=== PATIENT | female | born 1980 | race Two or more races ===

== ENCOUNTER 2024-07-11 22:48 | Emergency (ER) | payer BC, SELFPAY ==
--- NOTE | 2024-07-11 22:51 | EKG_ITS ---
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
[2024-07-11 22:54] VITALS: BP 145/90; PULSE 130; RESP 22; TEMP 36.6; O2SAT 100; BMI 32.4
--- NOTE | 2024-07-11 23:03 | XR_ITS ---
Examination: PA chest single view Technique: Upright PA chest single view Indications: Shortness of breath chest pain today Findings: Mild increased markings left base retrocardiac with poor definition left hemidiaphragm Right lung clear Normal heart size Osseous structures intact Impression: Suspicious for early left base pneumonia
[2024-07-11 23:49] LABS: Basophils # (Auto) 0.1 Thou/mm3 (0.0-0.2); Basophils % (Auto) 1 % (0-2.5); Eosinophils # (Auto) 0.1 Thou/mm3 (0.0-0.5); Eosinophils % (Auto) 1 % (0-10); Hematocrit 40.4 % (36.0-46.0); Hemoglobin 13.3 g/dL (12.0-16.0); Immature Granulocytes % (Auto) 0 % (0-0); Immature Granulocytes Auto 0.08 Thou/mm3 (0.00-0.00); Lymphocytes # (Auto) 3.4 Thou/mm3 (1.0-4.8); Lymphocytes % (Auto) 18 % (10-50); Mean Corpuscular HGB Conc 32.9 g/dl (31.0-37.0); Mean Corpuscular Hemoglobin 27.8 pg (25.0-35.0); Mean Corpuscular Volume 84 fL (80-100); Monocytes # (Auto) 1.1 Thou/mm3 (0.0-0.8); Monocytes % (Auto) 6 % (0-12); Neutrophils # (Auto) 13.9 Thou/mm3 (1.8-7.7); Neutrophils % (Auto) 75 % (37-80); Nucleated Red Blood Cell % 0 /100 WBC (0); Platelet Count 362 Thou/mm3 (140-440); RDW Standard Deviation 38.9 fL (36.4-46.3); Red Blood Count 4.79 Miln/mm3 (4.00-5.20); White Blood Count 18.6 Thou/mm3 (3.6-11.0)
[2024-07-12 00:02] LABS: Alanine Aminotransferase 19 U/L (10-49); Albumin, Serum 4.6 gm/dL (3.5-5.0); Albumin/Globulin Ratio 1.6 (1.2-2.2); Alkaline Phosphatase 60 U/L (46-116); Anion Gap 7 (7-16); Aspartate Amino Transferase 22 U/L (0-34); BUN/Creatinine Ratio 15 Ratio (12-20); Bilirubin,Total 0.8 mg/dL (0.3-1.2); Blood Urea Nitrogen 12 mg/dL (9-23); Calcium 9.6 mg/dL (8.3-10.6); Calcium (Corrected) 9.6 mg/dL (8.5-10.1); Carbon Dioxide 26.7 mMol/L (20.0-31.0); Chloride 107 mMol/L (98-107); Creatinine (Component) 0.8 mg/dL (0.6-1.3); Estimated Creatinine Clearance 89.7 mL/min (>60); Globulin 2.8 gm/dL (2.3-3.5); Glucose 146 mg/dL (74-106); Osmolality,Calculated 283 (275-295); Potassium 3.2 mMol/L (3.4-5.1); Sodium 141 mMol/L (136-145); Total Protein 7.4 gm/dL (5.7-8.2); Troponin I < 0.020 ng/mL (0.0-0.045); eGFR > 60 See Note
[2024-07-12] MEDS: POTASSIUM CHLORIDE 20 mEq TABCR 40 MEQ PO (00:09)
[2024-07-12 00:15] LABS: D-Dimer < 250 ng/mL (<600)
[2024-07-12 00:25] VITALS: BP 113/79; PULSE 113; RESP 18; O2SAT 99
[2024-07-12 00:58] LABS: Magnesium 2.1 mg/dL (1.6-2.6); Procalcitonin < 0.04 ng/ml (0.0-0.49); Thyroid Stimulating Hormone 2.48 uIU/mL (0.55-4.78)
[2024-07-12] MEDS: NAPROXEN 250 MG TABLET 500 MG PO (01:12)
[2024-07-12] MEDS: cefTRIAXone 1,000 MG, LIDOCAINE 1% 20 ML 2.1 ML IM (01:13)
--- NOTE | 2024-07-12 02:11 | EDNOTE_ITS ---
<Statement entered by Ninfa Villatoro MD - 07/12/24 19:17> As co-signing physician, I was present and available for consult prn. I concur with the plan and care as documented by the midlevel provider. ED Chest Pain RME/HPI General Chief Complaint: Chest Pain Stated Complaint: Chest Tightness/SOB Time Seen by Provider: 07/11/24 23:02 Arrival date/time: 07/11/24 22:48 44F with history of fibromyalgia presents to ED with 2 days of CP and SOB, as well as some fevers/chills. Patient has been taking 3 months of steroids for her R shoulder pain. Patient is also on Lasix due to chronic steroid use. Limitations: no limitations Related Data Previous Rx's ?Medication ?Instructions ?Recorded Phenazopyridine * (PYRIDIUM *) 200 mg PO TIDPC #6 tabs 04/14/15 amoxicillin 500 mg tablet 1,000 mg (2 x 500 mg) PO TID 5 07/12/24 days #30 tabs azithromycin 250 mg tablet See Rx Instructions PO .COMPLEX #6 07/12/24 tabs Allergies Allergy/AdvReac Type Severity Reaction Status Date / Time clindamycin Allergy Intermediate RASH Verified 03/04/16 04:36 Review of Systems Review of Systems Systems Reviewed: All systems reviewed, normal except as documented Constitutional Constitutional: Reports system reviewed and no additional complaints, except as documented, Denies fever(s) and Denies headache(s) ENT Ears, Nose, Mouth, and Throat: Denies disequilibrium and Denies headache(s) Cardiovascular Cardiovascular: Reports system reviewed and no additional complaints, except as documented, Reports as per HPI, Reports chest pain and Reports dyspnea Respiratory Respiratory: Reports system reviewed and no additional complaints, except as documented, Denies cough and Reports dyspnea Gastrointestinal Gastrointestinal: Reports system reviewed and no additional complaints, except as documented, Denies abdominal pain, Denies nausea and Denies vomiting Neurologic Neurologic: Reports system reviewed and no additional complaints, except as documented, Denies confusion, Denies disequilibrium and Denies headache(s) Psychiatric Psychiatric: Denies confusion Past Medical History Social History SMOKING STATUS: Never smoker ED Exam General Limitations: Present no limitations General appearance: Present alert and in no apparent distress Head Head exam: Present atraumatic Eye Eye exam: Present normal appearance, PERRL and EOMI ENT ENT exam: Present normal exam, normal oropharynx and mucous membranes moist Neck Neck exam: Present normal inspection, full ROM and trachea midline Chest Chest inspection: Present normal inspection and symmetric chest wall rise Respiratory Respiratory exam: Present normal lung sounds bilaterally Cardiovascular Cardiovascular exam: Present regular rate, normal rhythm and normal heart sounds Abdominal Exam Abdominal exam: Present soft and normal bowel sounds Extremities Exam Extremities exam: Present normal inspection and full ROM Back Exam Back exam: Present normal inspection and full ROM Neurological Exam Neurological exam: Present alert, oriented X3 and CN II-XII intact Psychiatric Psychiatric exam: Present normal affect and anxious (mild) Skin Skin exam: Present warm, dry, intact and normal color Course Quality Measures none Orders Category Date Time Status Bedside COVID-19 Antigen Test NOW Care 07/12/24 00:21 Completed Bedside Influenza A&B Antigen Test NOW Care 07/12/24 00:21 Completed EKG (ED ONLY) *Do not use* NOW Care 07/11/24 22:51 Completed EKG (ED Only) Stat Exams 07/11/24 22:51 Draft XR chest 1V portable Stat Exams 07/11/24 23:03 Completed CBC Stat Lab 07/11/24 23:19 Completed Comprehensive Metabolic Panel Stat Lab 07/11/24 23:19 Completed D-Dimer Stat Lab 07/11/24 23:19 Completed Magnesium Stat Lab 07/11/24 23:19 Completed Procalcitonin Stat Lab 07/11/24 23:19 Completed Thyroid Stimulating Hormone Stat Lab 07/11/24 23:19 Completed Troponin I Stat Lab 07/11/24 23:19 Completed Naproxen [Naprosyn] Med 07/12/24 01:06 Discontinued 500 mg PO X1 ONE Potassium Chloride [K-Dur] Med 07/12/24 00:04 Discontinued 40 meq PO X1 ONE cefTRIAXone [Rocephin] 1,000 mg Med 07/12/24 01:07 Discontinued Lidocaine 1% 20 ml [Xylocaine 1% 20 ML] 2.1 ml IM X1 Vital Signs Vital signs: Vital Signs Temperature 97.8 F 07/11/24 22:54 Pulse Rate 130 H 07/11/24 22:54 Respiratory Rate 22 H 07/11/24 22:54 Blood Pressure 145/90 H 07/11/24 22:54 Pulse Oximetry (%) 100 07/11/24 22:54 Oxygen Delivery Method Room Air 07/11/24 22:54 O2 at 100% on RA and WNLs Chest Pain MDM Narrative MDM Narrative:: 44F with history of fibromyalgia presents to ED with 2 days of CP and SOB, as well as some fevers/chills. Patient has been taking 3 months of steroids for her R shoulder pain. Patient is also on Lasix due to chronic steroid use. Physical exam reveals clear ENT and lungs. Patient is afebrile, alert, but mildly anxious. Swabs neg. EKG is sinus tach of 123. CXR early PNA. Significant leukocytosis, but normal procal. Mild hypoK, likely due to Lasix use. Patient confirms she also takes K supplements. Mag normal. Normal trop and D-dimer. Normal TSH. Meds and health counselor given. Likely also pleurisy component. Patient data External records reviewed:: [facility] previous records Clinical information provided by:: patient Social determinants that could affect healthcare access:: none Patient has the following chronic illnesses:: fibromyalgia How is presenting disease/condition affected by chronic disease/condition?: exacerbated by Evaluation data The following diagnostics were reviewed and interpreted by me:: lab results, radiology exam(s) and EKG tracing(s) Lab and/or radiology exams considered but not ordered:: ordered Interpretation Summary: above Medications / Prescriptions Medications or Prescriptions considered but not ordered:: ordered Medication administrations:: Medication Administration History Discontinued Medications Ceftriaxone Sodium 1,000 mg/ (Lidocaine HCl 2.1 ml) 0 mg IM X1 ONE Stop: 07/12/24 01:08 Last Admin: 07/12/24 01:13 Dose: 2.1 mg Documented By: OA Naproxen (Naproxen 250 Mg Tablet) 500 mg PO X1 ONE Stop: 07/12/24 01:07 Last Admin: 07/12/24 01:12 Dose: 500 mg Documented By: OA Potassium Chloride (Potassium Chloride 20 Meq Tabcr) 40 meq PO X1 ONE Stop: 07/12/24 00:05 Last Admin: 07/12/24 00:09 Dose: 40 meq Documented By: OA above Consultations Consultation(s) initiated? (list below): No Diagnosis Chest Pain Differential Diagnosis: fracture of rib, pneumothorax, stable angina, unstable angina pectoris, atypical chest pain, st elevation myocardial infarction, costochondritis, chest pain, biliary colic and other (PE, CAP) Most likely diagnosis given after review of the tests above:: CAP Admission Indicated Admission indicated?: not indicated Admission Request Was there a request for admission?: No Disposition Plan Disposition Plan: Discharge Discharge Attestation Discharge Attestation: The patient and all family members were given an opportunity to ask questions and understood the discharge instructions. Discharge instructions specifically effects, indications for sooner follow up or return to the emergency department, and the expected course of current diagnosis. Patient condition: Stable Discharge Plan Plan Patient Disposition: HOME (Self Care) Disposition Comment: Stable Prescriptions/Referrals Prescriptions/Med Rec: New amoxicillin 500 mg tablet 1,000 mg PO TID 5 Days Qty: 30 0RF azithromycin 250 mg tablet See Rx Instructions .ROUTE .COMPLEX Qty: 6 0RF Rx Instructions: For 250 mg dose pack: take 500 mg today (day 1), then 250 mg for 4 days (days 2-5) No Action Phenazopyridine * (PYRIDIUM *) 200 MG tablet 200 mg PO TIDPC Qty: 6 0RF Referrals: No Primary/Family,Physician [Primary Care Provider] - In 1 week Problem List Clinical Impression: CAP (community acquired pneumonia) Patient/Caregiver Discharge Instructions Education Materials: ED Pneumonia (Adult) Additional Instructions: Please follow-up with PCP within 24-48 hours and return immediately if symptoms worsen. Print Language: Lithuanian Stand Alone Forms: Work/School Release, Patient Portal Info Letter VAZQUEZ/ERIKA Supervising Physician JOSE ANTONIO Supervising Physician: Dr. Villatoro
== END 2024-07-12 01:21 | disposition home or self-care (01) ==
PROVIDERS: Physician Assistant; Emergency Provider Emergency Medicine
DX: J18.9 Pneumonia, unspecified organism (principal); R00.0 Tachycardia, unspecified
CPT/HCPCS: 36415; 71045; 80053; 83735; 84145; 84443; 84484; 85025; 85379; 87400; 87811; 93005; 96372; 99283; J0696; J3490; A9270